=== PATIENT | female | born 1985 | race Caucasian/White ===

== ENCOUNTER → 2017-01-24 | Outpatient (CLI) | payer BC, OTHER | LOC: M SMT 10:18 | PROVIDERS: ATTEND Physician Assistant | DX: Z32.02 Encounter for pregnancy test, result negative (principal) ==

== ENCOUNTER 2017-04-06 12:11 | Emergency (ER) | payer BC, OTHER ==
[~2017-04-06] VITALS: Ht 170.2 cm; Wt 93.1 kg
[2017-04-06] MEDS ORDERED: prenatal PO (12:20)
[2017-04-06] MEDS ORDERED: NS 1,000 ML IV ONE (13:30)
[2017-04-06] MEDS ORDERED: MORPHINE 4 MG/ML 1ML SYRINGE IV ONE (13:30)
[2017-04-06] MEDS ORDERED: ONDANSETRON 4MG/2ML VIAL (J2405) IV ONE (13:30)
[2017-04-06 13:55] LABS: BASO % 0.3 % (0.0-1.0); EOS # 0.2 K/mm3 (0.0-0.50); LARGE UNSTAINED CELL # 0.2 K/mm3 (0.0-0.4); LARGE UNSTAINED CELL % 1.6 % (0.0-4.0); LYMPH # 2.7 K/mm3 (1.5-4.5); LYMPH % 24.7 % (24.0-44.0); MEAN CORPUSCULAR HEMOGLOBIN 31.1 pg (27.0-33.0); MEAN CORPUSCULAR HGB CONC 35.4 g/dl (32.0-36.5); MEAN CORPUSCULAR VOLUME 87.9 fl (80.0-96.0); MONO # 0.4 K/mm3 (0.0-0.8); MONO % 3.6 % (0.0-5.0); NEUTROPHILS # 7.1 K/mm3 (1.8-7.7); NEUTROPHILS % 67.9 % (36.0-66.0); PLATELET COUNT, AUTOMATED 355 k/mm3 (150-450); RED CELL DISTRIBUTION WIDTH 12.7 % (11.5-14.5); WHITE BLOOD COUNT 10.4 K/mm3 (4.0-10.0)
[2017-04-06 14:30] LABS: ALBUMIN 3.6 GM/DL (3.2-5.2); ALBUMIN/GLOBULIN RATIO 1.24 (1.00-1.93); ALKALINE PHOSPHATASE 66 U/L (45-117); ALT/SGPT 29 U/L (12-78); ANION GAP 10 MEQ/L (8-16); AST/SGOT 14 U/L (15-37); BILIRUBIN,DIRECT < 0.1 MG/DL (0.0-0.2); BILIRUBIN,TOTAL 0.3 MG/DL (0.2-1.0); BLOOD UREA NITROGEN 9 MG/DL (7-18); CALCIUM LEVEL 8.3 MG/DL (8.5-10.1); CARBON DIOXIDE LEVEL 22 MEQ/L (21-32); CHLORIDE LEVEL 109 MEQ/L (98-107); CREATININE FOR GFR 0.55 MG/DL (0.55-1.02); GLOMERULAR FILTRATION RATE > 60.0 (>60); GLUCOSE, FASTING 115 MG/DL (70-105); HCG, SERUM QUANTITATIVE 6664 MIU/ML; POTASSIUM SERUM 3.8 MEQ/L (3.5-5.1); SODIUM LEVEL 141 MEQ/L (136-145); TOTAL PROTEIN 6.5 GM/DL (6.4-8.2)
[2017-04-06 14:51] VITALS: BP 113/61
[2017-04-06] MEDS ORDERED: OXYCODONE/APAP 5MG/325MG(BULK FOR ED) 1 TABLET PO ONE (15:00)
== END 2017-04-06 15:04 | disposition home or self-care (01) ==
LOC: M ED 12:11
DX: O03.4 Incomplete spontaneous abortion without complication (principal)
CPT/HCPCS: 80048; 80076; 84702; 85025; 86850; 86900; 86901; 96374; 96375; 99283; J2405

== ENCOUNTER → 2017-04-15 | Outpatient (REF) | payer OTHER ==
[~2017-04-15] MED LIST: prenatal PO
== END ==
LOC: M LAB REF 17:29
PROVIDERS: ATTEND Specialist
DX: O03.4 Incomplete spontaneous abortion without complication (principal)

== ENCOUNTER → 2017-06-16 | Outpatient (CLI) | payer OTHER | LOC: M SMT 14:18 | PROVIDERS: ATTEND Specialist | DX: O02.1 Missed abortion (principal); Z3A.00 Weeks of gestation of pregnancy not specified ==

== ENCOUNTER → 2017-06-18 | Outpatient (CLI) | payer BC, OTHER | LOC: M SMT 15:50 | PROVIDERS: ATTEND Specialist | DX: O02.1 Missed abortion (principal); Z3A.00 Weeks of gestation of pregnancy not specified ==

== ENCOUNTER → 2017-06-23 | Outpatient (REF) | payer OTHER | LOC: M LABSMT 12:48 → M LAB REF 12:48 | PROVIDERS: ATTEND Specialist | DX: N93.8 Other specified abnormal uterine and vaginal bleeding (principal) ==

== ENCOUNTER 2017-10-07 12:38 | Day surgery (SDC) | payer OTHER ==
[2017-10-07 13:05] LABS: HEMATOCRIT 39.1 % (36.0-47.0); HEMOGLOBIN 13.3 g/dl (12.0-16.0)
[2017-10-07] MEDS: LR 1,000 ML IV (13:09)
[2017-10-07] MEDS ORDERED: MIDAZOLAM INJ 2 MG/2 ML VIAL (J2250) As Ordered (13:14)
[2017-10-07] MEDS ORDERED: fentaNYL 100 MCG/2 ML INJECTION (J3010) As Ordered (13:14)
[2017-10-07] MEDS ORDERED: ONDANSETRON 4MG/2ML VIAL (J2405) IV (14:45)
[2017-10-07] MEDS ORDERED: PERCOCET 5MG/325MG TAB PO (14:45)
[2017-10-07] MEDS ORDERED: HYDROmorphone HCL 1 MG/ML SYRINGE (J1170) IV (14:45)
[2017-10-07] MEDS ORDERED: fentaNYL 100 MCG/2 ML INJECTION (J3010) IV (14:45)
[2017-10-07] MEDS ORDERED: LR 1,000 ML IV (14:45)
== END 2017-10-07 16:33 | disposition home or self-care (01) ==
LOC: M SDC 16:33
DX: O02.1 Missed abortion (principal); K58.9 Irritable bowel syndrome, unspecified; G43.909 Migraine, unspecified, not intractable, without status migrainosus; R06.83 Snoring; G47.9 Sleep disorder, unspecified
CPT/HCPCS: 59820

== ENCOUNTER → 2017-11-04 | Outpatient (REF) | payer OTHER | LOC: M LAB REF 20:06 | DX: J02.9 Acute pharyngitis, unspecified (principal) ==

== ENCOUNTER → 2018-01-27 | Outpatient (CLI) | payer OTHER ==
[2018-01-27 13:02] LABS: BASO % 0.2 % (0.0-1.0); EOS # 0.2 10^3/uL (0.0-0.50); EOS % 2.3 % (0.0-3.0); HEMATOCRIT 37.2 % (36.0-47.0); HEMOGLOBIN 12.7 g/dl (12.0-15.5); IMMATURE GRANULOCYTE % 0.4 % (0-3.0); LYMPH # 2.4 10^3/uL (1.5-4.5); LYMPH % 23.8 % (24.0-44.0); MEAN CORPUSCULAR HGB CONC 34.1 g/dl (32.0-36.5); MEAN CORPUSCULAR VOLUME 87.7 fl (80.0-96.0); MONO # 0.6 10^3/uL (0.0-0.8); MONO % 6.2 % (0.0-5.0); NEUTROPHILS # 6.7 10^3/uL (1.8-7.7); NEUTROPHILS % 67.1 % (36.0-66.0); PLATELET COUNT, AUTOMATED 296 10^3/uL (150-450); RED BLOOD COUNT 4.24 10^6/uL (4.00-5.40); RED CELL DISTRIBUTION WIDTH 12.5 % (11.5-14.5)
[2018-01-27 14:48] LABS: CHLAMYDIA DNA AMPLIFICATION NEGATIVE (NEGATIVE); GC DNA AMPLIFICATION NEGATIVE (NEGATIVE)
[2018-01-28 11:05] LABS: RUBELLA IgG QUALITATIVE IMMUNE (IMMUNE)
[2018-01-28 11:11] LABS: HBsAg Prenatal NEGATIVE (NEGATIVE)
[2018-01-28 11:35] LABS: HEPATITIS C VIRUS ABY INDEX < 0.0 INDEX (<0.8)
[2018-01-28 11:36] LABS: HIV 1&2 SCREEN CENTAUR NEGATIVE (NEGATIVE)
== END ==
LOC: M SMT 10:04
DX: Z36.89 Encounter for other specified antenatal screening (principal); Z3A.09 9 weeks gestation of pregnancy
CPT/HCPCS: 86762

== ENCOUNTER → 2018-03-30 | Outpatient (CLI) | payer OTHER | LOC: M RAD 15:07 | DX: Z34.81 Encounter for supervision of other normal pregnancy, first trimester (principal); Z36.89 Encounter for other specified antenatal screening; Z3A.18 18 weeks gestation of pregnancy | CPT/HCPCS: 76811 ==

== ENCOUNTER → 2018-05-27 | Outpatient (CLI) | payer OTHER ==
[2018-05-27 13:04] LABS: HEMATOCRIT 33.6 % (36.0-47.0); HEMOGLOBIN 11.2 g/dl (12.0-15.5); MEAN CORPUSCULAR HEMOGLOBIN 30.1 pg (27.0-33.0); MEAN CORPUSCULAR HGB CONC 33.3 g/dl (32.0-36.5); MEAN CORPUSCULAR VOLUME 90.3 fl (80.0-96.0); PLATELET COUNT, AUTOMATED 262 10^3/uL (150-450); RED BLOOD COUNT 3.72 10^6/uL (4.00-5.40); RED CELL DISTRIBUTION WIDTH 13.3 % (11.5-14.5); WHITE BLOOD COUNT 13.2 10^3/uL (4.0-10.0)
[2018-05-27 13:51] LABS: GLUCOSE CHALLENGE TEST 1 HOUR 133 MG/DL (LESS THAN 140)
== END ==
LOC: M SMT 07:57
DX: O26.22 Pregnancy care for patient with recurrent pregnancy loss, second trimester (principal)

== ENCOUNTER → 2018-06-05 | Outpatient (CLI) | payer OTHER ==
[2018-06-05 09:30] LABS: GLUCOSE, FASTING 88 MG/DL (LESS THAN 95)
[2018-06-05 10:11] LABS: 1 HR GLUCOSE 211 MG/DL (LESS THAN 180)
[2018-06-05 11:29] LABS: 2 HR GLUCOSE 169 MG/DL (LESS THAN 155)
[2018-06-05 12:54] LABS: 3 HR GLUCOSE 67 MG/DL (LESS THAN 140)
== END ==
LOC: M LAB 08:08
DX: R73.02 Impaired glucose tolerance (oral) (principal)

== ENCOUNTER → 2018-07-27 | Outpatient (CLI) | payer OTHER ==
[~2018-07-27] MED LIST changes: +MAPA500T17 PO; +MOTR200T44 PO
--- NOTE | 2018-07-27 11:58 | REP ---
Clinical: Size discrepancy . Comparison: 03/30/2018 . Findings: Examination demonstrates a single live intrauterine in cephalic presentation. motion is identified by technologist. Placenta is noted fundal and grade grade 1 without evidence for placenta previa or abruption. Amniotic fluid volume is normal. Cervix appears closed. No evidence for nuchal cord. Gestational age by LMP 35 weeks 5 days with MASOOD 08/26/2018. Gestational age by first US 37 weeks 1 day with MASOOD 08/16/2018 . Gestational age by current measurements 37 weeks 5 days with MASOOD 08/12/2018 . FHR equals 153 beats per minute. BPD 10.0 cm 40 weeks 6 days HC 34.2 cm 39 weeks 3 days AC 34.6 cm 38 weeks 3 days FL 7.2 cm 36 weeks 6 days HC/AC ratio 0.99 Estimated weight 3515 grams ( 77 percentile). Amniotic fluid index: 13.5 cm (7.5 - 24.3). Umbilical cord SD ratio: 2.55 Impression: Single live advanced gestation in cephalic presentation demonstrating appropriate interval growth when compared by first ultrasound. No gross abnormalities are identified. Electronically Signed by Deep Canchola MD 07/27/2018 11:49 A
== END ==
LOC: M SMT 10:10
PROVIDERS: ATTEND Advanced Practice Midwife
DX: O26.843 Uterine size-date discrepancy, third trimester (principal); Z3A.35 35 weeks gestation of pregnancy

== ENCOUNTER → 2018-07-30 | Outpatient (REF) | payer OTHER | LOC: M LAB REF 13:16 | DX: O24.410 Gestational diabetes mellitus in pregnancy, diet controlled (principal) | CPT/HCPCS: 87186 ==

== ENCOUNTER → 2018-08-14 | Outpatient (CLI) | payer OTHER | LOC: M SMT 08:48 | DX: Z36.89 Encounter for other specified antenatal screening (principal); Z3A.39 39 weeks gestation of pregnancy | CPT/HCPCS: 76816 ==

== ENCOUNTER 2018-08-22 08:30 | Inpatient (IN) | payer OTHER ==
[2018-08-22] MEDS ORDERED: PENICILLIN G POTASSIUM IV 5 MU in D5W MINI-BAG PLUS 100 ML IV (09:22)
[2018-08-22] MEDS ORDERED: miSOPROStol 50 MCG 1/2 TAB (S0191) As Ordered (09:31)
[2018-08-22] MEDS: miSOPROStol 50 MCG 1/2 TAB (S0191) PO ×4 (09:49→21:47)
[2018-08-22 10:17] LABS: HEMATOCRIT 35.5 % (36.0-47.0); HEMOGLOBIN 12.4 g/dl (12.0-15.5); MEAN CORPUSCULAR HEMOGLOBIN 30.6 pg (27.0-33.0); MEAN CORPUSCULAR HGB CONC 34.9 g/dl (32.0-36.5); MEAN CORPUSCULAR VOLUME 87.7 fl (80.0-96.0); PLATELET COUNT, AUTOMATED 249 10^3/uL (150-450); RED BLOOD COUNT 4.05 10^6/uL (4.00-5.40); RED CELL DISTRIBUTION WIDTH 13.5 % (11.5-14.5); WHITE BLOOD COUNT 11.3 10^3/uL (4.0-10.0)
[2018-08-22 10:39] LABS: TOTAL PROTEIN,RANDOM URINE 15.2 MG/DL (0.0-12.0)
[2018-08-22 10:39] LABS: CREATININE,RANDOM URINE 93.3 MG/DL
[2018-08-22 10:43] LABS: ALT/SGPT 15 U/L (12-78); AST/SGOT 14 U/L (7-37); BILIRUBIN,TOTAL 0.2 MG/DL (0.2-1.0); GLOMERULAR FILTRATION RATE > 60.0 (>60); LDH LACTATE DEHYDROGENASE 182 U/L (84-246); URIC ACID 6.3 MG/DL (2.6-6.0)
[2018-08-22] MEDS ORDERED: PENICILLIN G POTASSIUM IV 2.5 MU in APPROPRIATE DILUENT 1 EA IV (13:30)
[2018-08-22] MEDS: PENICILLIN G POTASSIUM IV 5 MU in D5W MINI-BAG PLUS 100 ML IV (23:47)
[2018-08-23] MEDS: LR 1,000 ML IV (02:00)
[2018-08-23] MEDS: OXYTOCIN DRIP 30 UNITS in APPROPRIATE DILUENT 1 EA IV (02:05)
[2018-08-23] MEDS ORDERED: FENTANYL 2MCG/ML ROPIVACAINE 0.2% IN 0.9% NACL 100ML IVBAG As Ordered (02:45)
[2018-08-23] MEDS: PENICILLIN G POTASSIUM IV 2.5 MU in APPROPRIATE DILUENT 1 EA IV ×2 (03:51→07:55)
[2018-08-23] MEDS ORDERED: REFRIGERATOR IV KEYS XX (04:00)
[2018-08-23] MEDS ORDERED: EPIDURAL COMMENT XX (04:00)
[2018-08-23] MEDS ORDERED: ePHEDrine SULFATE 25 MG/5 ML(5MG/ML) SYRINGE IV (04:00)
[2018-08-23] MEDS ORDERED: EPIDURAL/PCA KEYS XX (04:00)
[2018-08-23] MEDS ORDERED: diphenhydrAMINE INJ 50MG/ML VIAL (J1200) IV (04:00)
[2018-08-23] MEDS ORDERED: LACTATED RINGER'S 1000 ML IV (04:00)
[2018-08-23] MEDS ORDERED: NALOXONE INJ 0.4 MG/1 ML VIAL (J2310) IV (04:00)
[2018-08-23] MEDS: FENTANYL/ROPIVACAINE/NACL BAG 100 ML EPIDURAL ×2 (04:00→08:27)
[2018-08-23] MEDS: ONDANSETRON 4MG/2ML VIAL (J2405) IV (07:21)
[2018-08-23] MEDS: PRENATAL VITAMINS CHEWABLE TABLET PO (09:00)
[2018-08-23 10:32] LABS: CORD GAS ABE A -10.4; CORD GAS HCO3 A 18.4 MEQ/L; CORD GAS O2 SAT A 69.9 %; CORD GAS PCO2 A 51.2 mmHg; CORD GAS PH A 7.174 UNITS; CORD GAS PO2 A 33.9 mmHg; CORD GAS SBC A 15.9 MEQ/L
[2018-08-23 10:34] LABS: CORD GAS ABE V -7.3; CORD GAS HCO3 V 19.5 MEQ/L; CORD GAS PCO2 V 43.6 mmHg; CORD GAS PH V 7.268 UNITS; CORD GAS SBC V 18.1 MEQ/L; CORD GAS TCO2 V 20.8 MEQ/L
[2018-08-23] MEDS ORDERED: RHOGAM 300 MCG (1500 IU) INJ (J2790) IM (11:00)
[2018-08-23] MEDS ORDERED: MEASLES,MUMPS,RUBELLA VACCINE INJ (MMR-II) (90707) SC (11:00)
[2018-08-23] MEDS ORDERED: OXYTOCIN DRIP 30 UNITS in APPROPRIATE DILUENT 1 EA IV (11:00)
[2018-08-23] MEDS: DIBUCAINE 1% OINTMENT 30GM TOP (16:35)
[2018-08-23] MEDS: IBUPROFEN 800 MG TAB PO (16:36)
[2018-08-23] MEDS: DOCUSATE SODIUM 100 MG CAP PO (17:55)
[2018-08-23] MEDS: ACETAMINOPHEN 500 MG TAB PO (19:49)
[2018-08-24] MEDS: PRENATAL VITAMINS CHEWABLE TABLET PO (07:33)
[2018-08-24] MEDS: IBUPROFEN 800 MG TAB PO (07:33)
[2018-08-25] MEDS: PRENATAL VITAMINS CHEWABLE TABLET PO (07:57)
== END 2018-08-25 12:10 | disposition home or self-care (01) | DRG 807 ==
LOC: M LDI 08:30 → M OBS 08-23 14:24
PROC: 3E033VJ Introduction of Other Hormone into Peripheral Vein, Percutaneous Approach (ICD-10-PCS; 2018-08-22)
PROC: 3E0DXGC Introduction of Other Therapeutic Substance into Mouth and Pharynx, External Approach (ICD-10-PCS; 2018-08-22)
PROC: 10E0XZZ Delivery of Products of Conception, External Approach (ICD-10-PCS; principal; 2018-08-23)
PROC: 0HQ9XZZ Repair Perineum Skin, External Approach (ICD-10-PCS; 2018-08-23)
DX: O13.4 Gestational [pregnancy-induced] hypertension without significant proteinuria, complicating childbirth (principal); Z37.0 Single live birth; O24.425 Gestational diabetes mellitus in childbirth, controlled by oral hypoglycemic drugs; Z3A.39 39 weeks gestation of pregnancy; O99.820 Streptococcus B carrier state complicating pregnancy; O70.0 First degree perineal laceration during delivery

== ENCOUNTER → 2019-01-12 | Outpatient (REF) | payer OTHER ==
[~2019-01-12] MED LIST changes: -MAPA500T17 PO; +MAPA500T2 PO
[2019-01-12 20:26] LABS: CHLAMYDIA DNA AMPLIFICATION NEGATIVE (NEGATIVE); GC DNA AMPLIFICATION NEGATIVE (NEGATIVE)
== END ==
LOC: M LAB REF 18:16
PROVIDERS: ATTEND Family Medicine
DX: N76.0 Acute vaginitis (principal)

== ENCOUNTER → 2019-05-17 | Outpatient (REF) | payer OTHER | LOC: M LAB REF 18:13 | PROVIDERS: ATTEND Physician Assistant | DX: B37.3 Candidiasis of vulva and vagina (principal) ==

== ENCOUNTER → 2019-06-03 | Outpatient (REF) | payer OTHER ==
[2019-06-04 14:22] LABS: ANTINUCLEAR ANTIBODIES DIRECT Negative (Negative)
== END ==
LOC: M LABNEURO 08:24
PROVIDERS: ATTEND Psychiatry & Neurology Neurology
DX: R51 Headache (principal)

== ENCOUNTER → 2019-08-19 | Outpatient (REF) | payer OTHER | LOC: M LAB REF 12:45 | PROVIDERS: ATTEND Physician Assistant | DX: J00 Acute nasopharyngitis [common cold] (principal) ==

== ENCOUNTER → 2019-09-10 | Outpatient (CLI) | payer OTHER ==
--- NOTE | 2019-09-22 05:11 | ECWPNPC ---
PATIENT NAME: JAMIE STAPLETON : 1985 GENDER: FEMALE VISIT DATE: 09/10/2019 DISCHARGE DATE: 09/10/19 0953 VISIT LOCKED DATE TIME: PHYSICIAN: FEDERICO EAGLE MD RESOURCE: FEDERICO EAGLE MD REASON FOR APPOINTMENT 1. PRE SEDATE FOR SPINAL TAP HISTORY OF PRESENT ILLNESS PAIN SCREENING: PATIENT HAS A COMPLAINT OF ACUTE OR CHRONIC PAIN :YES 34 YEAR OLD FEMALE PATIENT WITH A HISTORY OF NEUROLOGICAL CHANGES AND CHRONIC MIGRAINES. THE PATIENT WAS SEEN BY HER NEUROLOGIST WHO ORDERED FOR A BRAIN MRI, WHICH FOUND LESIONS. THE PATIENT WAS REFERRED TO OUR CLINIC BY DR. PALACIOS FOR A SPINAL TAP WITH IV SEDATION TO RULE OUT MULTIPLE SCLEROSIS. THE PATIENT IS HERE TODAY FOR A PRE SEDATION PHYSICAL. PATIENT DENIES UNEXPLAINABLE WEIGHT LOSS, FEVER, CHILLS, NEW CHANGES ON HER URINARY OR BOWEL CONTROL. FALL RISK SCREENING: SCREENING :NO FALLS REPORTED IN THE LAST YEAR CURRENT MEDICATIONS TAKING MAY USE - - CONTROL PILL DAILY, NOTES: PT TAKES DAILY CONTROL PILL, DOES NOT RECALL NAME MEDICATION LIST REVIEWED AND RECONCILED WITH THE PATIENT PAST MEDICAL HISTORY MEDICAL HISTORY VERIFIED. ALLERGIES N.K.D.A. SURGICAL HISTORY DNC 2017 WISDOM TEETH REMOVAL 2013 ADNOIDS REMOVED 1996 FAMILY HISTORY MOTHER: DIAGNOSED WITH HYPERTENSION PATERNAL GRAND FATHER: DIABETES MATERNAL GRAND FATHER: UNSPECIFIED CEREBRAL ARTERY OCCLUSION WITH CEREBRAL INFARCTION MATERNAL GRAND MOTHER: UNSPECIFIED CEREBRAL ARTERY OCCLUSION WITH CEREBRAL INFARCTION SOCIAL HISTORY GENERAL: TOBACCO USE ARE YOU A:NONSMOKER PAIN CLINIC PFS, CLERGY, PUBLIC HEALTH REFERRALS HAS THE PATIENT BEEN EDUCATED REGARDING HIS/HER PLAN OF CARE?YES HAS THE PATIENT BEEN EDUCATED REGARDING PAIN, THE RISK FOR PAIN, THE IMPORTANCE OF EFFECTIVE PAIN MANAGEMENT, AND THE PAIN ASSESSMENT PROCESS?YES LATEX QUESTIONNAIRE LATEX ALLERGY : HAVE YOU EVER DEVELOPED ANY TYPE OF REACTION AFTER HANDLING LATEX PRODUCTS SUCH RUBBER GLOVES, CONDOMS, DIAPHRAGMS, BALLOONS, SOCKS, OR UNDERWEAR?NO LATEX ALLERGY : HAVE YOU EVER DEVELOPED ANY TYPE OF REACTION DURING OR AFTER DENTAL APPOINTMENT, VAGINAL/RECTAL EXAMINATION, SURGICAL PROCEDURE, OR ANY OTHER EXPOSURE?NO LATEX RISK : HAVE YOU EVER HAD ANY DIFFICULTY BREATHING OR HIVES AFTER EATING OR HANDLING ANY FRUITS, OR VEGETABLES; SUCH KIWI, BANANAS, STONE FRUITS, OR CHESTNUTSNO LATEX RISK : DO YOU HAVE A PREVIOUS PERSONAL HISTORY OF MORE THAN NINE SURGERIES, SPINA BIFIDA, OR REPEATED CATHERIZATIONS? NO LATEX RISK : ARE YOU FREQUENTLY EXPOSED TO LATEX PRODUCTS IN YOUR OCCUPATION?NO DATE ASKED : 09/10/2019 CAFFEINE CAFFEINE USE?YES COFFEE DAILY , 1 CUP DAILY ADVANCE DIRECTIVE ADVANCE DIRECTIVE DISCUSSED WITH PATIENT:YES HCP IS GRZEGORZ STAPLETON CHRISTIAN CHRISTIAN NO ADVENTIST BELIEFS THAT WOULD IMPACT HEALTH CARE. LANGUAGE LANGUAGES SPOKEN:BENGALI MARITAL STATUS: . ALCOHOL SCREENING DID YOU HAVE A DRINK CONTAINING ALCOHOL IN THE PAST YEAR?YES HOW OFTEN DID YOU HAVE A DRINK CONTAINING ALCOHOL IN THE PAST YEAR?TWO TO THREE TIMES PER WEEK (3 POINTS) HOW MANY DRINKS DID YOU HAVE ON A TYPICAL DAY WHEN YOU WERE DRINKING IN THE PAST YEAR?1 OR 2 (0 POINTS) POINTS3 INTERPRETATIONPOSITIVE RECREATIONAL DRUG USE DRUG USE?NO LEARNING BARRIERS / SPECIAL NEEDS BARRIERS TO LEARNING?NO HEARING IMPAIRED?NO VISION IMPAIRED?NO COGNITIVELY IMPAIRED?NO READINESS TO LEARN?YES REVIEWED WITH PATIENT 09/10/19 0900 BV. HOSPITALIZATION/MAJOR DIAGNOSTIC PROCEDURE CHILDBIRTH 2018 REVIEW OF SYSTEMS REVIEWED BY: PROVIDER: FEDERICO EAGLE MD . CONSTITUTIONAL: ANY CHANGE IN YOUR MEDICAL CONDITION? NO . CHILLS NO . FEVER NO . INFECTION: DO YOU HAVE NEW INFECTIONS? NO . DO YOU HAVE HISTORY OF MRSA? NO . MUSCULOSKELETAL: ANY NEW PATTERNS OF PAIN OR NUMBNESS? NO . SYTEMIC LUPUS NO . GASTROENTEROLOGY: ANY NEW CHANGE IN BOWEL CONTROL? NO . BARRETTS ESOPHAGUS NO . CIRRHOSIS NO . HEPATITIS NO . LIVER FAILURE NO . ACID REFLUX NO . UNEXPLAINED WEIGHT LOSS NO . GENITOURINARY: ANY NEW CHANGE IN BLADDER CONTROL? NO . IS THERE A CHANCE YOU COULD BE ? NO . HEMATOLOGY/LYMPH: DO YOU TAKE ANY BLOOD THINNERS? (FOR EXAMPLE- COUMADIN, PLAVIX, AGGRENOX, PLATEL, PRADAXA, OR XARELTO) NO . WHEN WAS YOUR LAST DOSE? DATE: TIME: . LOW PLATELET COUNT NO . SICKLE CELL DISEASE NO . VON WILLIEBRANDS NO . FACTOR V LEIDEN NO . THALLASEMIA NO . ANEMIA NO . EASY BRUISING NO . NEUROLOGY: HAVE YOU FALLEN IN THE PAST 12 MONTHS? NO . ANY NEW EXTREMITY NUMBNESS OR WEAKNESS? NO . HEAD INJURY YES PT STATES SHE HAD 2 DIAGNOSED CONCUSSIONS A CHILD . DEMENTIA NO . CEREBRAL PALSY NO . MULTIPLE SCLEROSIS NO . DIZZINESS NO . HEADACHE NO . STROKES NO . VERTIGO NO . CARDIOLOGY: DO YOU HAVE A PACEMAKER OR DEFIBRILLATOR? NO . ANGINA NO . HEART ATTACK NO . HEART SURGERY NO . CONGESTIVE HEART FAILURE/FLUID OVERLOAD NO . CHEST PAIN NO . HIGH BLOOD PRESSURE NO . IRREGULAR HEART BEAT NO . RESPIRATORY: HAVE YOU BEEN SICK IN THE PAST WEEK? NO . FEVER NO . FLU LIKE SYMPTOMS? NO . CPAP YES, PT STATES SHE WAS DIAGNOSED WITH SLEEP APNEA YEARS AGO, BUT DOES NOT USE CPAP MACHINE. . BYPAP NO . ASTHMA NO . EMPHYSEMA NO . CHRONIC LUNG DISEASES NO . SHORTNESS OF BREATH ON EXERTION NO . COUGH NO . SNORING NO . INTEGUMENTARY: DO YOU HAVE ANY RASHES OR OPEN SORES? NO . ALLERGIC/IMMUNO: ARE YOU ALLERGIC TO IV DYE? NO . ANY NEW ALLERGIES? NO . PSYCHIATRIC: DO YOU HAVE THOUGHTS OF HURTING YOURSELF OR SOMEONE ELSE? NO . ARE YOU ABUSED, NEGLECTED, OR IN AN UNSAFE ENVIRONMENT? NO . ENDOCRINOLOGY: ARE YOU DIABETIC? NO . THYROID DISORDER NO . OTHER: DO YOU NEED ANY PRESCRIPTIONS? NO . IF YES, PLEASE LIST: ____ . ANY NEW PROBLEMS WITH YOUR MEDICATIONS? NO . WHEN DID YOU LAST EAT? ____ . WHEN DID YOU LAST DRINK? ____ . WHAT DID YOU LAST DRINK? ____ . NAME OF PERSON DRIVING YOU HOME? ____ . DO YOU HAVE ANY OTHER QUESTIONS OR CONCERNS NO . VITAL SIGNS WT 214.4 LBS, HT 68 IN, BMI 32.60 INDEX, BP 132/71 MM HG, HR 84 /MIN, RR 18 /MIN, TEMP 97.9 F, OXYGEN SAT % 96%, NA INITIALS SC 08:50, REVIEWED BY: BV. EXAMINATION GENERAL EXAMINATION: PATIENT IS ALERT O X 3 AND COOPERATIVE. LUNGS CLEAR, TO AUSCULTATION. HEART: NO MURMURS OR GALLOPS; FACIAL CRANIAL NERVES ARE GROSSLY NORMAL. GOOD SYMMETRY OF FACIAL MUSCLE MOVEMENT. NORMAL VISUAL DELVALLE. PATIENT WALKS WITH NORMAL GAIT. SPINAL TAP ORDER FROM DR. PALACIOS IS PRESENT IN PATIENT'S CHART. ASSESSMENTS NEUROLOGICAL SYMPTOMS - R29.90 (PRIMARY) CHRONIC MIGRAINE - G43.709 R/O MS. TREATMENT NEUROLOGICAL SYMPTOMS CLINICAL NOTES: WE DISCUSSED SEVERAL ISSUES WITH MS. STAPLETON'S CASE. THE PATIENT WILL COME IN FOR A SPINAL TAP IN THE NEXT FEW WEEKS. WE DISCUSSED THE BENEFITS AND RISKS OF THE PROCEDURE AND THE PATIENT WOULD LIKE TO PROCEED. INSTRUCTIONS WERE GIVEN, QUESTIONS WERE ANSWERED, PATIENT REPORTS UNDERSTANDING AND AGREES WITH THE PLAN. I, SHILA OLSON, DOCUMENTED THE ABOVE INFORMATION ACTING A SCRIBE FOR DR. EAGLE. I HAVE REVIEWED THE ABOVE DOCUMENT, WRITTEN BY SHILA OLSON SCRIBE AND I VERIFY THAT IT IS ACCURATE.. PREVENTIVE MEDICINE PAIN CLINIC TEACHING: PROCEDURE TEACHING PT GIVEN WRITTEN AND VERBAL EDUCATION ON SPINAL TAP PROCEDURE. PT ALSO GIVEN WRITTEN AND VERBAL PRE PROCEDURE INSTRUCTIONS. PT VERBALIZES UNDERSTANDING OF ALL EDUCATION AND INSTRUCTIONS. LEMUEL VELIZ 09/10/2019 9:53:04 AM > . PROCEDURE CODES FA211 ESTABILISHED PATIENT [facility] FACILITY CHARGE G8427 CURRENT MEDS W/DOSAGES DOCUMENTED G8730 PAIN ASSESS POS TOOL F/U PLAN DOC DISPOSITION & COMMUNICATION FOLLOW UP 3 WEEKS ELECTRONICALLY SIGNED BY FEDERICO EAGLE MD, MD ON 09/21/2019 AT 02:13 PM EST DISCLAIMER : THIS IS A VISIT SUMMARY EXTRACTED FROM THE [employer] CHART. IT IS NOT A COPY OF THE [employer] PROGRESS NOTE. STEPHANIE
== END ==
LOC: M PAIN 08:45
PROVIDERS: ATTEND Anesthesiology
DX: R29.90 Unspecified symptoms and signs involving the nervous system (principal); G43.709 Chronic migraine without aura, not intractable, without status migrainosus; G47.30 Sleep apnea, unspecified; Z79.899 Other long term (current) drug therapy

== ENCOUNTER → 2019-09-13 | Outpatient (CLI) | payer OTHER ==
[~2019-09-13] MED LIST changes: +LIDOCAINE 1% SDV INJ 30 ML VIAL As Ordered ONE; +MIDAZOLAM INJ 2 MG/2 ML VIAL (J2250) As Ordered ONE; +fentaNYL 100 MCG/2 ML INJECTION (J3010) As Ordered ONE
[2019-09-13 17:33] LABS: APPEARANCE, CSF CLEAR (CLEAR); COLOR, CSF COLORLESS (COLORLESS); CSF TUBE# CELL CNT TUBE 3
[2019-09-13 17:53] LABS: CSF TUBE# GLU TUBE 1; CSF TUBE# TP TUBE 1; GLUCOSE CSF 51 MG/DL (40-75); TOTAL PROTEIN,CSF 32 MG/DL (15-45)
--- NOTE | 2019-09-24 04:24 | ECWPNPC ---
PATIENT NAME: JAMIE STAPLETON : 1985 GENDER: FEMALE VISIT DATE: 09/13/2019 DISCHARGE DATE: 09/13/19 1605 VISIT LOCKED DATE TIME: PHYSICIAN: FEDERICO EAGLE MD RESOURCE: FEDERICO EAGLE MD REASON FOR APPOINTMENT 1. SPINAL TAP HISTORY OF PRESENT ILLNESS HISTORY OF PRESENT ILLNESS: PAIN THE PATIENT DESCRIBES THE PAIN... FALL RISK SCREENING: SCREENING :NO FALLS REPORTED IN THE LAST YEAR CURRENT MEDICATIONS TAKING MAY USE - - CONTROL PILL DAILY, NOTES: 1 WEEK AGO MEDICATION LIST REVIEWED AND RECONCILED WITH THE PATIENT PAST MEDICAL HISTORY MEDICAL HISTORY VERIFIED. ALLERGIES N.K.D.A. SURGICAL HISTORY DNC 2017 WISDOM TEETH REMOVAL 2013 ADNOIDS REMOVED 1996 FAMILY HISTORY MOTHER: DIAGNOSED WITH HYPERTENSION PATERNAL GRAND FATHER: DIABETES MATERNAL GRAND FATHER: UNSPECIFIED CEREBRAL ARTERY OCCLUSION WITH CEREBRAL INFARCTION MATERNAL GRAND MOTHER: UNSPECIFIED CEREBRAL ARTERY OCCLUSION WITH CEREBRAL INFARCTION SOCIAL HISTORY GENERAL: TOBACCO USE ARE YOU A:NONSMOKER PAIN CLINIC PFS, CLERGY, PUBLIC HEALTH REFERRALS HAS THE PATIENT BEEN EDUCATED REGARDING HIS/HER PLAN OF CARE?YES HAS THE PATIENT BEEN EDUCATED REGARDING PAIN, THE RISK FOR PAIN, THE IMPORTANCE OF EFFECTIVE PAIN MANAGEMENT, AND THE PAIN ASSESSMENT PROCESS?YES LATEX QUESTIONNAIRE LATEX ALLERGY : HAVE YOU EVER DEVELOPED ANY TYPE OF REACTION AFTER HANDLING LATEX PRODUCTS SUCH RUBBER GLOVES, CONDOMS, DIAPHRAGMS, BALLOONS, SOCKS, OR UNDERWEAR?NO LATEX ALLERGY : HAVE YOU EVER DEVELOPED ANY TYPE OF REACTION DURING OR AFTER DENTAL APPOINTMENT, VAGINAL/RECTAL EXAMINATION, SURGICAL PROCEDURE, OR ANY OTHER EXPOSURE?NO DATE ASKED : 09/10/2019 LATEX RISK : HAVE YOU EVER HAD ANY DIFFICULTY BREATHING OR HIVES AFTER EATING OR HANDLING ANY FRUITS, OR VEGETABLES; SUCH KIWI, BANANAS, STONE FRUITS, OR CHESTNUTSNO LATEX RISK : DO YOU HAVE A PREVIOUS PERSONAL HISTORY OF MORE THAN NINE SURGERIES, SPINA BIFIDA, OR REPEATED CATHERIZATIONS? NO LATEX RISK : ARE YOU FREQUENTLY EXPOSED TO LATEX PRODUCTS IN YOUR OCCUPATION?NO CAFFEINE CAFFEINE USE?YES COFFEE DAILY , 1 CUP DAILY ADVANCE DIRECTIVE ADVANCE DIRECTIVE DISCUSSED WITH PATIENT:YES HCP IS GRZEGORZDONA STAPLETON MANDAEISM MANDAEISM NO HINDUISM BELIEFS THAT WOULD IMPACT HEALTH CARE. LANGUAGE LANGUAGES SPOKEN:PERUVIAN MARITAL STATUS: . ALCOHOL SCREENING DID YOU HAVE A DRINK CONTAINING ALCOHOL IN THE PAST YEAR?YES HOW MANY DRINKS DID YOU HAVE ON A TYPICAL DAY WHEN YOU WERE DRINKING IN THE PAST YEAR?1 OR 2 (0 POINTS) HOW OFTEN DID YOU HAVE A DRINK CONTAINING ALCOHOL IN THE PAST YEAR?TWO TO THREE TIMES PER WEEK (3 POINTS) POINTS3 INTERPRETATIONPOSITIVE RECREATIONAL DRUG USE DRUG USE?NO LEARNING BARRIERS / SPECIAL NEEDS BARRIERS TO LEARNING?NO HEARING IMPAIRED?NO VISION IMPAIRED?NO COGNITIVELY IMPAIRED?NO READINESS TO LEARN?YES REVIEWED WITH PATIENT 09/13/19 1400 BV. HOSPITALIZATION/MAJOR DIAGNOSTIC PROCEDURE CHILDBIRTH 2018 REVIEW OF SYSTEMS REVIEWED BY: PROVIDER: . CONSTITUTIONAL: ANY CHANGE IN YOUR MEDICAL CONDITION? NO . CHILLS NO . FEVER NO . INFECTION: DO YOU HAVE NEW INFECTIONS? NO . DO YOU HAVE HISTORY OF MRSA? NO . MUSCULOSKELETAL: ANY NEW PATTERNS OF PAIN OR NUMBNESS? NO . GASTROENTEROLOGY: ANY NEW CHANGE IN BOWEL CONTROL? NO . GENITOURINARY: ANY NEW CHANGE IN BLADDER CONTROL? NO . IS THERE A CHANCE YOU COULD BE ? NO . HEMATOLOGY/LYMPH: DO YOU TAKE ANY BLOOD THINNERS? (FOR EXAMPLE- COUMADIN, PLAVIX, AGGRENOX, PLATEL, PRADAXA, OR XARELTO) NO . WHEN WAS YOUR LAST DOSE? DATE: TIME: . NEUROLOGY: HAVE YOU FALLEN IN THE PAST 12 MONTHS? NO . ANY NEW EXTREMITY NUMBNESS OR WEAKNESS? NO . CARDIOLOGY: DO YOU HAVE A PACEMAKER OR DEFIBRILLATOR? NO . RESPIRATORY: HAVE YOU BEEN SICK IN THE PAST WEEK? NO . FEVER NO . FLU LIKE SYMPTOMS? NO . COUGH NO . INTEGUMENTARY: DO YOU HAVE ANY RASHES OR OPEN SORES? NO . ALLERGIC/IMMUNO: ARE YOU ALLERGIC TO IV DYE? NO . ANY NEW ALLERGIES? NO . PSYCHIATRIC: DO YOU HAVE THOUGHTS OF HURTING YOURSELF OR SOMEONE ELSE? NO . ARE YOU ABUSED, NEGLECTED, OR IN AN UNSAFE ENVIRONMENT? NO . ENDOCRINOLOGY: ARE YOU DIABETIC? NO . OTHER: DO YOU NEED ANY PRESCRIPTIONS? NO . IF YES, PLEASE LIST: ____ . ANY NEW PROBLEMS WITH YOUR MEDICATIONS? NO . WHEN DID YOU LAST EAT? 09-13-2019 0700 . WHEN DID YOU LAST DRINK? 09-13-2019 1100 . WHAT DID YOU LAST DRINK? WATER . NAME OF PERSON DRIVING YOU HOME? BERENICE STAPLETON . DO YOU HAVE ANY OTHER QUESTIONS OR CONCERNS NO . VITAL SIGNS WT 214.4 LBS, HT 68 IN, BMI 32.60 INDEX, BP 134/70 MM HG, HR 72 /MIN, RR 18 /MIN, TEMP 98.0 F, OXYGEN SAT % 95%, NA INITIALS SC 13:38, REVIEWED BY: LS. ASSESSMENTS ENCOUNTER FOR LUMBAR PUNCTURE - Z01.89 (PRIMARY) R/O MS. TREATMENT ENCOUNTER FOR LUMBAR PUNCTURE CLINICAL NOTES: SPINAL TAP WITH IV SEDATION -- PLEASE SEE xaitment. PROCEDURE CODES 50086 SPINAL FLUID TAP DIAGNOSTIC 55429 MOD SED SAME PHYS/QHP 5/>YRS DISPOSITION & COMMUNICATION FOLLOW UP REASON: F/UP WITH NEUROLOGIST/CALL NEEDED ELECTRONICALLY SIGNED BY FEDERICO EAGLE MD, MD ON 09/23/2019 AT 10:27 AM EST DISCLAIMER : THIS IS A VISIT SUMMARY EXTRACTED FROM THE Back& CHART. IT IS NOT A COPY OF THE [employer] PROGRESS NOTE. STEPHANIE
== END ==
LOC: M PAIN 13:00
PROVIDERS: ATTEND Anesthesiology
DX: Z01.89 Encounter for other specified special examinations (principal); Z79.899 Other long term (current) drug therapy
CPT/HCPCS: 36415; 62270; 82784; 82945; 83916; 84157; 87070; 87102; 87205; 87252; 87483; 88108; 88313; 89050; 99152; J2250; J3010

== ENCOUNTER → 2019-10-12 | Outpatient (REF) | payer OTHER ==
[~2019-10-12] MED LIST changes: -LIDOCAINE 1% SDV INJ 30 ML VIAL As Ordered ONE; -MIDAZOLAM INJ 2 MG/2 ML VIAL (J2250) As Ordered ONE; -fentaNYL 100 MCG/2 ML INJECTION (J3010) As Ordered ONE
== END ==
LOC: M LAB REF 15:59
PROVIDERS: ATTEND Nurse Practitioner Family
DX: J02.9 Acute pharyngitis, unspecified (principal)

== ENCOUNTER → 2019-12-08 | Outpatient (REF) | payer OTHER ==
[2019-12-08 18:31] LABS: HEMOGLOBIN 13.3 g/dl (12.0-15.5); MEAN CORPUSCULAR HEMOGLOBIN 30.2 pg (27.0-33.0); MEAN CORPUSCULAR HGB CONC 33.3 g/dl (32.0-36.5); MEAN CORPUSCULAR VOLUME 90.9 fl (80.0-96.0); PLATELET COUNT, AUTOMATED 333 10^3/uL (150-450); WHITE BLOOD COUNT 11.4 10^3/uL (4.0-10.0)
[2019-12-08 20:20] LABS: CHLAMYDIA DNA AMPLIFICATION NEGATIVE (NEGATIVE); GC DNA AMPLIFICATION NEGATIVE (NEGATIVE)
[2019-12-09 11:57] LABS: HIV 1&2 SCREEN CENTAUR NEGATIVE (NEGATIVE); RUBELLA IgG QUALITATIVE IMMUNE (IMMUNE)
[2019-12-10 08:54] LABS: HEPATITIS B SURFACE ANTIGEN NEGATIVE (NEGATIVE)
== END ==
LOC: M PLALAB 12:04
PROVIDERS: ATTEND Specialist
DX: Z34.81 Encounter for supervision of other normal pregnancy, first trimester (principal); Z3A.00 Weeks of gestation of pregnancy not specified

== ENCOUNTER → 2019-12-09 | Outpatient (REF) | payer OTHER | LOC: M PLALAB 10:20 | PROVIDERS: ATTEND Specialist | DX: Z34.81 Encounter for supervision of other normal pregnancy, first trimester (principal) ==

== ENCOUNTER → 2020-01-05 | Outpatient (REF) | payer OTHER | LOC: M PLALAB 14:45 | PROVIDERS: ATTEND Advanced Practice Midwife | DX: O99.211 Obesity complicating pregnancy, first trimester (principal) ==

== ENCOUNTER → 2020-01-06 | Outpatient (REF) | payer OTHER ==
[2020-01-06 14:19] LABS: ALT/SGPT 20 U/L (12-78); BILIRUBIN,TOTAL 0.6 MG/DL (0.2-1.0); GLOMERULAR FILTRATION RATE > 60.0 (>60); GLUCOSE CHALLENGE TEST 1 HOUR 98 MG/DL (LESS THAN 140); LDH LACTATE DEHYDROGENASE 142 U/L (84-246); URIC ACID 2.8 MG/DL (2.6-6.0)
[2020-01-06 14:33] LABS: CREATININE,RANDOM URINE 38.8 MG/DL; TOTAL PROTEIN,RANDOM URINE 11.9 MG/DL (0.0-12.0)
== END ==
LOC: M PLALAB 10:34
PROVIDERS: ATTEND Advanced Practice Midwife
DX: O99.211 Obesity complicating pregnancy, first trimester (principal)

== ENCOUNTER → 2020-01-28 | Outpatient (CLI) | payer OTHER ==
--- NOTE | 2020-01-28 12:45 | REP ---
OB ULTRASOUND: Limited OB ultrasound performed utilizing transabdominal and endovaginal technique. Cervical length is 3.2 cm measured transvaginally. heart rate of this 90-hrie-1-day gestation is 161 beats per minute. In the anterior lower uterine segment, there appears to be a subchorionic hemorrhage 3.7 x 2.8 x 3.3 cm. The placenta is fundal and posterior with no evidence of placenta previa.
== END ==
LOC: M WHC 09:38
PROVIDERS: ATTEND Advanced Practice Midwife

== ENCOUNTER → 2020-02-18 | Outpatient (CLI) | payer OTHER ==
--- NOTE | 2020-02-19 08:19 | REP ---
OBSTETRIC SONOGRAPHY: HISTORY: Supervision of second trimester study for anatomy. FINDINGS: Scanning through the gravid uterus demonstrates a viable single intrauterine gestation in variable lie. motion is observed, and heart rate is recorded at 144 beats per minute. Posterior grade 1 placenta is seen without evidence of previa or abruption. Amniotic fluid is subjectively normal. Closed cervical length is measured transabdominally at 3.6 cm. No extrauterine abnormalities observed. There is an oval fluid collection anterior and superior to the internal cervical os measuring 2.7 x 2.7 x 0.9 cm. There is another complex fluid collection along the left side of the gestational sac measuring 6.2 x 4.9 x 2.8 cm. No extrauterine abnormalities observed. No anomaly is seen. The following anatomic structures are identified and felt to be unremarkable: cranium, choroid plexus, cavum, cerebellum and posterior fossa, nuchal fold, face and profile, four-chamber heart with left and right ventricular outflow tract views, diaphragm, left-sided stomach, abdominal wall cord insertion, three-vessel cord, kidneys and bladder, spine, upper and lower extremities. BIOMETRY CHART: BPD 4.5 cm = 19 weeks 4 days Head circumference 17.4 cm = 19 weeks 6 days Abdominal circumference 14.5 cm = 19 weeks 6 days Femur length 3.3 cm = 20 weeks 1 day Humeral length 3.3 cm = 21 weeks 1 day HC/AC ratio normal 1.20 Cephalic index normal 0.70 Estimated weight 324 grams, 0 pounds 11 ounces, 56th percentile for 19 weeks 5 days. IMPRESSION: Viable single intrauterine gestation at 19 weeks 5 days by today's composite criteria. MASOOD by today's criteria, July 09, 2020. No anomaly is seen. There are two amniotic fluid collections, as described above.
== END ==
LOC: M WHC 15:05
PROVIDERS: ATTEND Advanced Practice Midwife
DX: O99.212 Obesity complicating pregnancy, second trimester (principal)

== ENCOUNTER → 2020-04-04 | Outpatient (REF) | payer OTHER ==
[~2020-04-04] MED LIST changes: +PRENTAB9 PO
[2020-05-01 20:28] LABS: BASO % 0.1 % (0.0-1.0); EOS # 0.2 10^3/uL (0.0-0.5); EOS % 1.3 % (0.0-3.0); HEMATOCRIT 37.3 % (36.0-47.0); HEMOGLOBIN 11.9 g/dl (12.0-15.5); LYMPH # 2.3 10^3/uL (1.5-5.0); LYMPH % 16.6 % (24.0-44.0); MEAN CORPUSCULAR HEMOGLOBIN 30.7 pg (27.0-33.0); MEAN CORPUSCULAR HGB CONC 31.9 g/dl (32.0-36.5); MEAN CORPUSCULAR VOLUME 96.1 fl (80.0-96.0); MONO # 0.5 10^3/uL (0.0-0.8); MONO % 3.7 % (0.0-5.0); NEUTROPHILS # 10.7 10^3/uL (1.5-8.5); NEUTROPHILS % 77.6 % (36.0-66.0); PLATELET COUNT, AUTOMATED 270 10^3/uL (150-450); RED BLOOD COUNT 3.88 10^6/uL (4.00-5.40); WHITE BLOOD COUNT 13.8 10^3/uL (4.0-10.0)
== END ==
LOC: M SFHCWAGY 14:53
PROVIDERS: ATTEND Specialist
DX: Z00.00 Encounter for general adult medical examination without abnormal findings (principal)

== ENCOUNTER → 2020-06-15 | Outpatient (REF) | payer OTHER ==
[~2020-06-15] MED LIST changes: -PRENTAB9 PO
== END ==
LOC: M SFHCWAGY 09:51
PROVIDERS: ATTEND Advanced Practice Midwife
DX: Z3A.36 36 weeks gestation of pregnancy (principal)

== ENCOUNTER 2020-07-08 12:02 | Outpatient (CLI) | payer OTHER ==
[~2020-07-08] VITALS: Ht 172.7 cm; Wt 104.9 kg
[2020-07-08 12:14] VITALS: BP 126/73
[2020-07-08] MEDS ORDERED: PRENTAB9 PO (12:45)
--- NOTE | 2020-07-08 13:08 | IPNPDOC ---
Text Note Date of Service The patient was seen on 07/08/20. NOTE 34yo 39w6d presents for NST. Denies vaginal bleeding, LOF or reg ctx. O: vss, AF Cat I NST A/P: 34yo with Well controlled A1GDM reassuring status Labor precautions and FCKs. IOL this week VS,Fishbone, I+O VS, Fishbone, I+O Vital Signs Date Time Temp Pulse Resp B/P (MAP) Pulse Ox O2 Delivery O2 Flow Rate FiO2 07/08/20 12:14 72 18 126/73 (90) NÉSTOR VELASQUEZ MD. Jul 08, 2020 13:08
== END 2020-07-08 12:38 | disposition home or self-care (01) ==
LOC: M LDO 12:02
PROVIDERS: ATTEND Obstetrics & Gynecology
DX: Z36.89 Encounter for other specified antenatal screening (principal); Z3A.39 39 weeks gestation of pregnancy
CPT/HCPCS: 59025; G0378; G0463

== ENCOUNTER 2020-07-11 08:49 | Inpatient (IN) | payer OTHER ==
[2020-07-11] VITALS (7 sets, daily range): BP systolic 125–144; BP diastolic 77–91
[~2020-07-11] VITALS: Ht 172.7 cm; Wt 106.3 kg
[~2020-07-11 08:49] MED LIST changes: +PRENTAB9 PO
[2020-07-11] MEDS: miSOPROStol 50 MCG 1/2 TAB (S0191) SL SCH ×3 (10:12→17:00)
[2020-07-11 10:43] LABS: HEMATOCRIT 37.6 % (36.0-47.0); HEMOGLOBIN 12.5 g/dl (12.0-15.5); MEAN CORPUSCULAR HGB CONC 33.2 g/dl (32.0-36.5); MEAN CORPUSCULAR VOLUME 90.4 fl (80.0-96.0); PLATELET COUNT, AUTOMATED 251 10^3/uL (150-450); RED BLOOD COUNT 4.16 10^6/uL (4.00-5.40); WHITE BLOOD COUNT 10.9 10^3/uL (4.0-10.0)
--- NOTE | 2020-07-11 12:10 | HPEPDOC ---
Obstetrical History & Physical General Date of Admission Jul 11, 2020 at 08:49 History of Present Illness 34 yo female at 39 6/7 weeks by LMP c/w 9 week ultrasound (EDC=07/12/2020) presents for labor induction. complicated by Class A1 gestational diabetes. She denies contractions or vaginal bleeding. Information Provided By: Patient Age: 34 : 6 Term: 1 Pre-term: 0 Abortions: 4 Livin Care Care: Good Care Dating Final EDC: Jul 12, 2020 Final EDC by: LMP, 1st trimester (US) Past Medical History Past Obstetrical History : Date of Delivery: Aug 23, 2018 Gestation: 38 Type of Delivery: Spontaneous Vaginal Del. 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 BREAST: . ABDOMEN: Gravid and non-tender to touch. FETUS: Is vertex (VTX) by sterile vaginal examination (SVE), fetus is vertex (VTX) by Juno. HEART RATE: Regular rate and rhythm. LUNGS: Clear to auscultation (CTA). EXTREMITIES: No edema. No clonus. Deep tendon reflexes (DTRs) + . Vital Signs/I&O Vital Signs Date Time Temp Pulse Resp B/P (MAP) Pulse Ox O2 Delivery O2 Flow Rate FiO2 07/11/20 10:11 80 125/77 (93) 07/11/20 09:30 98.0 Laboratory Data 24H LABS Laboratory Tests 2 07/11/20 09:02: Serology Scanned Report Hepatitis B Testing 07/11/20 10:14: Nucleated Red Blood Cells % (auto) 0.0, Syphilis Serology NONREACTIVE 07/11/20 10:37: Coronavirus (COVID-19)(PCR) NEGATIVE CBC/BMP Laboratory Tests 07/11/20 10:14 Pertinent Laboratoy Data Blood Type: O+ Group B Streptococcus: Positive Anatomy Ultrasound Normal Anatomy: Yes Placenta Previa: No Steroid Therapy Steroid Therapy: No Vaginal Examination Dilation: 1cm Effacement: 50% Station: -2 Cervical Consistency: Soft Cervical Position: Posterior Presentation: Cephalic presentation Assessment Variability: Moderate Accelerations: Positive Decelerations: None Tocometer Contractions: No Assessment/Plan Assessment Pt is a 34-year-old (G)6 para (P)1-0-4-1 at 39+6 weeks by LMP c/w 9- week ultrasound (EDC= 07/12/2020) Presents to Labor and Delivery (L&D) for labor inducition. significant for diet controlled GDM. Plan Admit and orient. Tool/Die Maker and consent. Group B Streptococcus (GBS) positive. Labs and intravenous (IV) per unit protocol. Counseled on Misoprostol and induction of labor (IOL). Anticipate [normal spontaneous delivery ()]. C-S as appropriate. JUDE CONTRERAS MD Jul 11, 2020 12:10
[2020-07-11] MEDS ORDERED: PENICILLIN G POTASSIUM IV 5 MU in D5W MINI-BAG PLUS 100 ML IV STA (18:15)
[2020-07-11] MEDS ORDERED: FENTANYL 2MCG/ML ROPIVACAINE 0.2% IN 0.9% NACL 100ML IVBAG As Ordered ONE (21:43)
[2020-07-11] MEDS ORDERED: LACTATED RINGER'S 1000 ML IV PRN (22:13)
[2020-07-11] MEDS ORDERED: EPIDURAL/PCA KEYS XX PRN (22:13)
[2020-07-11] MEDS ORDERED: EPIDURAL COMMENT XX SCH (22:13)
[2020-07-11] MEDS ORDERED: ONDANSETRON 4MG/2ML VIAL IV PRN (22:13)
[2020-07-11] MEDS ORDERED: NALOXONE INJ 0.4MG/1ML VIAL (J2310 PER 1MG) IV PRN (22:13)
[2020-07-11] MEDS ORDERED: diphenhydrAMINE 50MG/ML VIAL (J1200) IV PRN (22:13)
[2020-07-11] MEDS ORDERED: FENTANYL/ROPIVACAINE/NACL BAG 100 ML EPIDURAL SCH (22:13)
[2020-07-11] MEDS ORDERED: REFRIGERATOR IV KEYS XX PRN (22:13)
[2020-07-11] MEDS ORDERED: ePHEDrine SULFATE 25 MG/5 ML(5MG/ML) SYRINGE IV PRN (22:13)
[2020-07-11] MEDS: PENICILLIN G POTASSIUM IV 2.5 MU in IV 1 EA IV SCH (22:28)
[2020-07-11] MEDS ORDERED: ePHEDrine SULFATE 25 MG/5 ML(5MG/ML) SYRINGE As Ordered ONE (22:55)
[2020-07-12] MEDS ORDERED: LR 1,000 ML IV SCH (00:22)
[2020-07-12] MEDS ORDERED: OXYTOCIN DRIP 30 UNITS in IV 1 EA IV SCH (00:30)
[2020-07-12] MEDS: PENICILLIN G POTASSIUM IV 2.5 MU in IV 1 EA IV SCH (02:20)
[2020-07-12 06:03] LABS: CORD GAS ABE A -6.1; CORD GAS ABE V -5.4; CORD GAS HCO3 A 23.8 MEQ/L; CORD GAS HCO3 V 21.2 MEQ/L; CORD GAS O2 SAT A 25.1 %; CORD GAS O2 SAT V 66.6 %; CORD GAS PCO2 A 66.3 mmHg; CORD GAS PCO2 V 45.1 mmHg; CORD GAS PH A 7.173 UNITS; CORD GAS PH V 7.291 UNITS; CORD GAS PO2 A 16.5 mmHg; CORD GAS PO2 V 28.7 mmHg; CORD GAS SBC A 17.8 MEQ/L; CORD GAS SBC V 19.4 MEQ/L; CORD GAS TCO2 A 25.8 MEQ/L; CORD GAS TCO2 V 22.6 MEQ/L
[2020-07-12] MEDS ORDERED: DOCUSATE SODIUM 100 MG CAP PO PRN (06:30)
[2020-07-12] MEDS ORDERED: LIDOCAINE 1% MDV 20ML VIAL INFIL ONE (06:30)
[2020-07-12] MEDS ORDERED: OXYTOCIN DRIP 30 UNITS in IV 1 EA IV ONE (06:30)
[2020-07-12] MEDS ORDERED: IBUPROFEN 600MG TAB PO PRN (06:30)
[2020-07-12] MEDS ORDERED: MEASLES,MUMPS,RUBELLA VACCINE INJ (MMR-II) (90707) SC SCH (06:30)
[2020-07-12] MEDS ORDERED: RHOGAM 300 MCG (1500 IU) INJ (J2790) IM SCH (06:30)
[2020-07-12] MEDS ORDERED: ACETAMINOPHEN TAB 650MG DOSE (2X325MG) PO PRN (06:30)
[2020-07-12] MEDS ORDERED: METHYLERGONOVINE MALEATE 0.2 MG TAB PO PRN (06:30)
[2020-07-12] MEDS ORDERED: DIBUCAINE 1% OINTMENT 30GM TOP PRN (06:30)
--- NOTE | 2020-07-12 06:32 | DNPDOC ---
[facility] Delivery Note Delivery Note DATE OF DELIVERY: July 12, 2020 PREDELIVERY DIAGNOSIS: 39-5/7 weeks' gestation, A1 GDM, induction. POST DELIVERY DIAGNOSIS: Delivered. PROCEDURE: Spontaneous vaginal delivery. DIRECTOR DIGITAL COMMUNICATIONS: Dr. Jude Contreras MD ANESTHESIA: epidural. ESTIMATED BLOOD LOSS: 300 mL. FINDINGS: 8 pound 13 ounce Male infant, Score 8/8, tight nuchal cord times 1. DELIVERY SUMMARY: Patient is a 34-year-old 6 now para 2-0-4-1 who was admitted to labor and delivery for induction. She received 2 doses of Misoprostol. She then received Pitocin. After a 5 minute second stage of labor she had a spontaneous vaginal delivery of an 8 lb. 13 oz. male . Tight nuchal cord clamped and cut on the perineum. Shoulders delivered with ease. handed to mother.The placenta delivered spontaneously and appeared to be intact. Pt received IV Pitocin immediately after delivery of the placenta. A second degree perineal laceration repaired with 2-O Chromic under local anesthesia in the usual fashion. Sponge and needle counts correct. JUDE CONTRERAS MD Jul 12, 2020 06:32
[2020-07-12] MEDS: PRENATAL VITAMINS CHEWABLE TABLET PO SCH (09:08)
[2020-07-12] MEDS: IBUPROFEN 800 MG TAB PO PRN ×2 (09:12→16:43)
[2020-07-12 09:54] VITALS: BP 117/59
[2020-07-12] MEDS ORDERED: SLF 3 ML SYR IV PRN (10:00)
[2020-07-12] MEDS: ACETAMINOPHEN 500 MG TAB PO PRN ×2 (13:18→19:45)
[2020-07-12] MEDS: SLF 3 ML SYR IV SCH ×2 (13:19→22:00)
[2020-07-12 13:20] VITALS: BP 155/88
[2020-07-12 13:40] VITALS: BP 146/80
[2020-07-12 18:00] VITALS: BP 138/79
[2020-07-13] MEDS: IBUPROFEN 800 MG TAB PO PRN ×2 (03:51→12:47)
[2020-07-13] MEDS: SLF 3 ML SYR IV SCH ×2 (06:00→14:00)
[2020-07-13 06:07] VITALS: BP 142/74
[2020-07-13] MEDS: PRENATAL VITAMINS CHEWABLE TABLET PO SCH (08:52)
[2020-07-13] MEDS: ACETAMINOPHEN 500 MG TAB PO PRN (08:53)
== END 2020-07-13 14:16 | disposition home or self-care (01) | DRG 807 ==
LOC: M LDI 08:49 → M OBS 07-12 13:00
PROVIDERS: ADMIT Specialist; ATTEND Specialist
PROC: 3E0P7GC Introduction of Other Therapeutic Substance into Female Reproductive, Via Natural or Artificial Opening (ICD-10-PCS; 2020-07-11)
PROC: 10E0XZZ Delivery of Products of Conception, External Approach (ICD-10-PCS; principal; 2020-07-12)
PROC: 0KQM0ZZ Repair Perineum Muscle, Open Approach (ICD-10-PCS; 2020-07-12)
DX: O24.420 Gestational diabetes mellitus in childbirth, diet controlled (principal); Z37.0 Single live birth; Z3A.39 39 weeks gestation of pregnancy; O99.824 Streptococcus B carrier state complicating childbirth; O69.1XX0 Labor and delivery complicated by cord around neck, with compression, not applicable or unspecified; O70.1 Second degree perineal laceration during delivery

== ENCOUNTER → 2020-10-13 | Outpatient (CLI) | payer SELFPAY | LOC: M LABSMTC 09:43 | PROVIDERS: ATTEND Pediatrics | DX: Z20.822 Contact with and (suspected) exposure to COVID-19 (principal) ==

== ENCOUNTER → 2021-01-10 | Outpatient (REF) | payer OTHER | LOC: M WUC 20:00 | PROVIDERS: ATTEND Physician Assistant | DX: J02.9 Acute pharyngitis, unspecified (principal) ==

== ENCOUNTER → 2021-01-11 | Outpatient (CLI) | payer OTHER ==
--- NOTE | 2021-01-11 15:04 | REP ---
INDICATION: PAIN COMPARISON: None. TECHNIQUE: AP, lateral, bilateral oblique views right foot. FINDINGS: The osseous structures and joint spaces are intact and normal. There is no evidence for acute fracture or dislocation. Surrounding soft tissues are unremarkable. No subcutaneous emphysema or radiodense foreign body. IMPRESSION: Age-appropriate right foot radiographs. No significant degenerative changes appreciated. <Electronically signed by Deep Canchola > 01/11/21 1500
== END ==
LOC: M WUC 08:26
PROVIDERS: ATTEND Physician Assistant
DX: M79.671 Pain in right foot (principal)

== ENCOUNTER → 2021-06-01 | Outpatient (CLI) | payer OTHER ==
[2021-06-01 13:52] LABS: BASO % 0.3 % (0.0-1.0); EOS # 0.3 10^3/uL (0.0-0.5); EOS % 5.2 % (0.0-3.0); HEMATOCRIT 38.4 % (36.0-47.0); HEMOGLOBIN 13.1 g/dl (12.0-15.5); LYMPH # 2.4 10^3/uL (1.5-5.0); LYMPH % 39.8 % (24.0-44.0); MEAN CORPUSCULAR HEMOGLOBIN 30.2 pg (27.0-33.0); MEAN CORPUSCULAR HGB CONC 34.1 g/dl (32.0-36.5); MEAN CORPUSCULAR VOLUME 88.5 fl (80.0-96.0); MONO # 0.6 10^3/uL (0.0-0.8); MONO % 9.2 % (2.0-8.0); NEUTROPHILS # 2.7 10^3/uL (1.5-8.5); NEUTROPHILS % 45.3 % (36.0-66.0); PLATELET COUNT, AUTOMATED 259 10^3/uL (150-450); RED BLOOD COUNT 4.34 10^6/uL (4.00-5.40)
[2021-06-01 14:35] LABS: ALBUMIN 3.3 GM/DL (3.2-5.2); ALT/SGPT 29 U/L (12-78); BILIRUBIN,TOTAL 0.4 MG/DL (0.2-1.0); BLOOD UREA NITROGEN 12 MG/DL (7-18); CALCIUM LEVEL 8.7 MG/DL (8.5-10.1); CARBON DIOXIDE LEVEL 23 MEQ/L (21-32); CHLORIDE LEVEL 110 MEQ/L (98-107); CREATININE FOR GFR 0.68 MG/DL (0.55-1.30); GLOMERULAR FILTRATION RATE > 60.0 (>60); GLUCOSE, FASTING 112 MG/DL (70-100); POTASSIUM SERUM 3.8 MEQ/L (3.5-5.1); SODIUM LEVEL 139 MEQ/L (136-145); THYROID STIMULATING HORMONE 0.415 uIU/ML (0.358-3.740); TOTAL PROTEIN 6.4 GM/DL (6.4-8.2)
[2021-06-01 14:46] LABS: HEPATITIS B SURFACE ANTIGEN NEGATIVE (NEGATIVE)
[2021-06-01 15:14] LABS: HEPATITIS B CORE ANTIBODY IGM NEGATIVE (NEGATIVE)
[2021-06-01 15:16] LABS: HEPATITIS A ANTIBODY IGM NEGATIVE (NEGATIVE)
== END ==
LOC: M PLALAB 11:00
PROVIDERS: ATTEND Psychiatry & Neurology Neurology
DX: G35 Multiple sclerosis (principal)

== ENCOUNTER → 2021-10-15 | Outpatient (REF) | payer OTHER | LOC: M SFHCWAGY 10:00 | PROVIDERS: ATTEND Obstetrics & Gynecology | DX: R87.610 Atypical squamous cells of undetermined significance on cytologic smear of cervix (ASC-US) (principal); Z12.4 Encounter for screening for malignant neoplasm of cervix | CPT/HCPCS: 87624; G0123 ==

== ENCOUNTER → 2022-10-30 | Outpatient (CLI) | payer OTHER | LOC: M RAD 14:21 | PROVIDERS: ATTEND Nurse Practitioner Adult Health | DX: N39.46 Mixed incontinence (principal) ==

== ENCOUNTER → 2022-12-02 | Outpatient (REF) | payer OTHER | LOC: M PLALAB 14:59 | PROVIDERS: ATTEND Obstetrics & Gynecology | DX: Z01.419 Encounter for gynecological examination (general) (routine) without abnormal findings (principal) | CPT/HCPCS: 87624; G0123 ==

== ENCOUNTER → 2024-09-22 | Outpatient (CLI) | payer OTHER | LOC: M RAD 10:48 | PROVIDERS: ATTEND Family Medicine | DX: R10.2 Pelvic and perineal pain (principal); Z97.5 Presence of (intrauterine) contraceptive device; N83.201 Unspecified ovarian cyst, right side ==

== ENCOUNTER → 2025-07-15 | Outpatient (REF) | payer OTHER ==
[2025-07-19 14:15] LABS: HPV APTIMA Not Detected (Not Detected)
== END ==
LOC: M SFHCWAGY 17:42
PROVIDERS: ATTEND Student in an Organized Health Care Education/Training Program
DX: Z12.4 Encounter for screening for malignant neoplasm of cervix (principal)
CPT/HCPCS: 87624; G0123